=== PATIENT | male | born 1965 | race Caucasian/White ===

== ENCOUNTER 2024-05-18 05:33 | Observation (INO) ==
--- NOTE | 2024-04-15 13:40 | PAT Medication Instructions ---
Medication Instructions Date of Service April 15, 2024 Home Medications Medication Instructions Recorded albuterol sulfate 90 mcg/actuation 2 puff inhalation Q6H PRN 03/22/21 aerosol inhaler shortness of breath or wheezing #8.5 grams cholecalciferol (vitamin D3) 25 50 mcg (2 x 25 mcg (1,000 unit)) 02/15/22 mcg (1,000 unit) capsule PO DAILY #90 caps tamsulosin 0.4 mg capsule (Flomax) 0.4 mg PO QAM #90 caps 11/22/23 omeprazole 40 mg capsule,delayed 40 mg PO DAILY #90 caps 01/29/24 release verapamil 240 mg tablet,extended 360 mg (1.5 x 240 mg) PO DAILY 02/13/24 release #135 tabs celecoxib 100 mg capsule (Celebrex) 100 mg PO BID #60 caps 02/24/24 gabapentin 600 mg tablet 600 mg PO TID #90 tabs 02/27/24 albuterol sulfate 90 mcg/actuation aerosol inhaler 2 puff inhalation Q6H PRN shortness of breath or wheezing cholecalciferol (vitamin D3) 25 mcg (1,000 unit) capsule 50 mcg (2 x 25 mcg (1,000 unit)) PO DAILY tamsulosin 0.4 mg capsule (Flomax) 0.4 mg PO QAM omeprazole 40 mg capsule,delayed release 40 mg PO DAILY verapamil 240 mg tablet,extended release 360 mg (1.5 x 240 mg) PO DAILY celecoxib 100 mg capsule (Celebrex) 100 mg PO BID acetaminophen 650 mg tablet,extended release 1,300 mg PO DAILY gabapentin 600 mg tablet 600 mg PO TID finasteride 5 mg tablet (Proscar) 5 mg PO DAILY sertraline 100 mg tablet (Zoloft) 100 mg PO BID tadalafil 5 mg tablet (Cialis) 5 mg PO DAILY tizanidine 4 mg tablet (Zanaflex) 4 mg PO BID PRN muscle spasticity ASK your surgeon for instructions celecoxib 100 mg capsule (Celebrex) 100 mg PO BID DO NOT take the morning of surgery cholecalciferol (vitamin D3) 25 mcg (1,000 unit) capsule 50 mcg (2 x 25 mcg (1,000 unit)) PO DAILY Take morning of surgery With a small sip of water, OTHERWISE NOTHING TO EAT OR DRINK AFTER MIDNIGHT: albuterol sulfate 90 mcg/actuation aerosol inhaler 2 puff inhalation Q6H PRN shortness of breath or wheezing (use if needed; please bring rescue inhaler with you to hospital day of surgery if possible) tamsulosin 0.4 mg capsule (Flomax) 0.4 mg PO QAM omeprazole 40 mg capsule,delayed release 40 mg PO DAILY verapamil 240 mg tablet,extended release 360 mg (1.5 x 240 mg) PO DAILY acetaminophen 650 mg tablet,extended release 1,300 mg PO DAILY gabapentin 600 mg tablet 600 mg PO TID finasteride 5 mg tablet (Proscar) 5 mg PO DAILY sertraline 100 mg tablet (Zoloft) 100 mg PO BID tadalafil 5 mg tablet (Cialis) 5 mg PO DAILY tizanidine 4 mg tablet (Zanaflex) 4 mg PO BID PRN muscle spasticity (if needed) Take evening before surgery albuterol sulfate 90 mcg/actuation aerosol inhaler 2 puff inhalation Q6H PRN shortness of breath or wheezing (if needed) gabapentin 600 mg tablet 600 mg PO TID sertraline 100 mg tablet (Zoloft) 100 mg PO BID tizanidine 4 mg tablet (Zanaflex) 4 mg PO BID PRN muscle spasticity (if needed) Other Notes If you have any questions please call us at [phone] or [phone] or [phone] or [phone]
--- NOTE | 2024-04-23 09:42 | Anesthesiology Consultation ---
Date of Service April 23, 2024 Assessment & Plan (1) Encounter for pre-operative examination: Chart Review Chart Review: Acceptable Risk for Surgery and Patient seen in Pre Admission Testing Teaching & Discussion Pre-Anesthesia Teaching/Discussion Notes: Instructed NPO after midnight before surgery, except medications with 15 cc of water. Medication instructions provided according to the PAT guidelines. History Surgery Operation Date: 05/18/24 07:30 Proposed Procedures p C3-C4, C4-C5 Artificial Disc Arthroplasty - Dex Dong MD Height/Weight Height: 6 ft 1 in Weight: 89.7 kg Allergies Allergy/AdvReac Type Severity Reaction Status Date / Time iodine Allergy Intermediate Rash Verified 04/15/24 12:46 aspirin AdvReac Severe Bruises/Ble Verified 04/15/24 12:46 eding duloxetine AdvReac Intermediate Tachycardia Verified 04/15/24 12:46 Medications Home Medications Medication Instructions Recorded Confirmed Last Taken albuterol sulfate 90 mcg/actuation 2 puff inhalation Q6H PRN 03/22/21 04/15/24 Unknown aerosol inhaler shortness of breath or wheezing #8.5 grams cholecalciferol (vitamin D3) 25 50 mcg (2 x 25 mcg (1,000 unit)) 02/15/22 04/15/24 02/26/24 07:30 mcg (1,000 unit) capsule PO DAILY #90 caps tamsulosin 0.4 mg capsule (Flomax) 0.4 mg PO QAM #90 caps 11/22/23 04/15/24 02/26/24 07:30 omeprazole 40 mg capsule,delayed 40 mg PO DAILY #90 caps 01/29/24 04/15/24 02/26/24 07:30 release verapamil 240 mg tablet,extended 360 mg (1.5 x 240 mg) PO DAILY 02/13/24 04/15/24 02/26/24 07:30 release #135 tabs celecoxib 100 mg capsule (Celebrex) 100 mg PO BID #60 caps 02/24/24 04/15/24 Unknown acetaminophen 650 mg 1,300 mg PO DAILY 02/27/24 04/15/24 02/26/24 07:30 tablet,extended release gabapentin 600 mg tablet 600 mg PO TID #90 tabs 02/27/24 04/15/24 02/26/24 07:30 finasteride 5 mg tablet (Proscar) 5 mg PO DAILY 04/15/24 04/15/24 Unknown sertraline 100 mg tablet (Zoloft) 100 mg PO BID 04/15/24 04/15/24 Unknown tadalafil 5 mg tablet (Cialis) 5 mg PO DAILY 04/15/24 04/15/24 Unknown tizanidine 4 mg tablet (Zanaflex) 4 mg PO BID PRN muscle spasticity 04/15/24 04/15/24 Unknown Past Medical History Medical History (Updated 04/23/24 @ 09:59 by Krysta Jain PA-C) Anxiety and depression BPH (benign prostatic hyperplasia) Carpal tunnel syndrome Cervical stenosis of spine Degenerative disc disease, lumbar Emphysema lung History of kidney stones Passed on own HTN (hypertension) controlled, stable per pt Hx of aspiration pneumonitis with colonoscopy and endoscopy Migraines PONV (postoperative nausea and vomiting) denies needing scop patch Skin cancer Basal Cell Carcinoma - Side of neck s/p excision Patient denies h/o stroke, seizures, heart attack, heart failure, DM, blood clots/DVTs or blood transfusions. Exercise / Class Metabolic Activity II 4-5 Yardwork/Stairs/Walk up hill (denies chest discomfort or shortness of breath with one flight of stairs) Past Family History Family History Mother COPD (chronic obstructive pulmonary disease) Hypertension Father Myocardial infarction Grandmother (Maternal) Diabetes Heart disease Myocardial infarction Past Surgical History Surgical History H/O arthroscopic knee surgery right H/O shoulder surgery right H/O sinus surgery History of biopsy of bladder 02/27/24 [facility] Hx of arthroscopy of left knee Hx of colonoscopy Hx of esophagogastroduodenoscopy Hx of local excision of skin lesion Basal Cell Carcinoma - Side of neck Hx of tonsillectomy Past Anesthesia History No Family Hx of Anesthesia Complications and Other (aspiration during colonoscopy and endoscopy) History of PONV No Hx of Motion Sickness and History of PONV (denies needing scop patch) Social History Smoking Status: Current every day smoker (-advised) tobacco type: cigarettes Smoking cigarettes per day: 1/2ppd Do You Dip or Chew Tobacco: No Smoking End Date: 1/2 pack Hx Alcohol Use: No Hx Substance Use: No substance use type: marijuana Substance Use Type Other:: medical marijuana-advised Last Used Substance Other:: medical jordyn Review of Systems Patient denies chest pain, shortness of breath, dyspnea on exertion, snoring, witnessed apneas, reflux, fever, chills, cough, wheezing, or palpitations. Physical Exam Vital Signs Vitals BP 151/98 P 65 TEMP 97.9 SP02 98% on RA RESP 18 Physical Patient resting comfortably in chair in no acute distress, alert and oriented, responding appropriately throughout visit Full cervical extension range of motion without pain TMD 3.5 finger breadths Mallampati Score 2 Dentition: intact, denies chipped or loose teeth, caps/crowns, implants or bridg es Lungs: normal respiratory effort. Good air movement, clear throughout to auscultation, no adventitious breath sounds Cardiac: regular rate and rhythm, no murmurs noted Carotid arteries: negative bruit bilat Lab Results Anesthesia Preop Results Results Anesthesia Widget: WBC 6.56 K/ul (4.8-10.8) 04/23/24 Hgb 14.7 g/dl (14.0-18.0) 04/23/24 Hct 41.7 % (42.0-52.0) L 04/23/24 Plt 255 K/uL (130-400) 04/23/24 Na 140 mmol/L (136-145) 04/23/24 K 4.0 mmol/L (3.5-5.1) 04/23/24 Cl 108 mmol/L (98-107) H 04/23/24 CO2 26 mmol/L (21-32) 04/23/24 BUN 16 mg/dl (6-23) 04/23/24 Creat 0.88 mg/dl (0.6-1.4) 04/23/24 Glucose Level 93 mg/dl (70-99(Fasting)) 04/23/24 PT 10.9 Seconds (9.0-12.0) 04/23/24 PTT 29 Seconds (21-31) 04/23/24 INR 1.0 (0.9-1.1) 04/23/24 Blood Type O Negative 04/23/24 Antibody Screen NEGATIVE 04/23/24 Testing Electrocardiogram Date: 04/23/24 NSR, rate 63 bpm Chest X-Ray Date: 02/24/24 No active disease. Stress Test Date: 04/12/23 Normal at MPHR 82% No resting LV wall motion abnormalities or inducible ischemia EF 50-54% No significant valvular disease Other Testing Head CT 02/14/24 No acute intracranial abnormality Chest CT 10/31/23 Ascending aorta mildly dilated to 4 cm Extensive centrilobular emphysema, greatest at the apices Multiple too small to characterize hepatic hypodensities, likely cysts Abdomen pelvis CT 11/06/23 1. Limited exam secondary to contrast within the renal collecting systems, ureters and urinary bladder on the precontrast scan. 2. Suggestion of small bilateral renal calculi. No ureteral calculi, hydronephrosis, or upper urothelial lesion. 3. Prostamegaly with evidence of chronic bladder outlet obstruction. 4. Possible 1.4 cm intraluminal lesion within the left aspect of the urinary bladder which could be correlated with cystoscopy.
[2024-05-18] MEDS: GABAPENTIN 600 MG DOSE PO SCH (05:54)
[2024-05-18] MEDS: LR 15ML/HR IV SCH (05:54)
[2024-05-18] MEDS: LR 60ML/HR IV SCH (05:54)
[2024-05-18] MEDS ORDERED: DEXAMETHASONE SOD INJ 4 MG/ML VIAL ONE (06:49)
[2024-05-18] MEDS ORDERED: fentaNYL citrate PF 100 MCG/2 ML VIAL ONE ×2 (06:49→08:09)
[2024-05-18] MEDS ORDERED: LIDOCAINE 2% 2 ML VIAL/AMP(20MG/ML) INFIL ONE (06:49)
[2024-05-18] MEDS ORDERED: GLYCOPYRROLATE 0.2 MG/ML VIAL ONE (06:49)
[2024-05-18] MEDS ORDERED: ONDANSETRON INJ 2 MG/ML 2 ML VIAL ONE ×2 (06:49→08:08)
[2024-05-18] MEDS ORDERED: PROPOFOL IV EMULSION 10 MG/ML 20 ML VIAL IV ONE (06:49)
[2024-05-18] MEDS ORDERED: ROCURONIUM BROMIDE 10 MG/ML 5 ML VIAL IV ONE (06:49)
[2024-05-18] MEDS ORDERED: MIDAZOLAM HCL 1 MG/ML 2ML VIAL ONE (06:49)
[2024-05-18] MEDS ORDERED: SUGAMMADEX SODIUM 200 MG/2 ML VIAL IV ONE (06:51)
[2024-05-18] MEDS ORDERED: HYDROmorphone INJ 1 MG/ML SYRINGE IV PRN (06:53)
[2024-05-18] MEDS ORDERED: ATROPINE SULFATE 0.1 MG/ML 10ML SYR IV PRN (06:53)
[2024-05-18] MEDS ORDERED: ONDANSETRON INJ 2 MG/ML 2 ML VIAL IV PRN ×2 (06:53→12:11)
[2024-05-18] MEDS ORDERED: ePHEDrine sulfate 50 MG/ML AMP IV PRN (06:53)
--- NOTE | 2024-05-18 07:32 | History & Physical Bridge Note ---
Date of Service May 18, 2024 History & Physical Bridge Note I have examined the patient, reviewed the History & Physical and in the interval since the performance of the History & Physical I have noted the following changes of clinical significance: no changes noted
[2024-05-18] MEDS: ceFAZolin 2000MG 2,000 MG/15 ML SYR IV SCH (08:06)
[2024-05-18] MEDS ORDERED: ePHEDrine sulfate 50 MG/5 ML SYR ONE (08:08)
[2024-05-18] MEDS ORDERED: PHENYLEPHRINE 100MCG/ML 5ML SYR ONE (08:08)
[2024-05-18] MEDS ORDERED: METOCLOPRAMIDE HCL INJ 5 MG/ML 2 ML VIAL ONE (08:08)
[2024-05-18] MEDS: VANCOMYCIN HCL 1000MG/20ML VIAL ONE (11:42)
[2024-05-18] MEDS: FLOSEAL HEMOSTATIC MATRIX 10ML TOP ONE (11:42)
[2024-05-18] MEDS: THROMBIN 5000 UNITS KIT ONE (11:45)
[2024-05-18] MEDS: GELATIN SPONGE 12-7MM ONE (11:45)
--- NOTE | 2024-05-18 11:50 | Post Operative Brief Note ---
PG Immediate Post Op with CF Date of Surgery May 18, 2024 Pre & Post Diagnosis Operation Date: 05/18/24 07:15 Pre-Op Diagnosis: Cervical Stenosis of Spine, Cervical Radiculopathy Post-Op Diagnosis: Cervical Stenosis of Spine, Cervical Radiculopathy I identified the patient and participated in the time-out.: Yes Procedure Operation Date: 05/18/24 07:15 Actual Procedures p C3-C4, C4-C5 Artificial Disc Arthroplasty(Not Applicable) - Dex Dong MD Surgeon Dex Dong MD [employer] Radar Operator none Estimated Blood Loss 5 Findings Consistent with Post-Op Diagnosis Specimens Specimen Description: None per surgeon Drains Grayson Catheter
[2024-05-18] MEDS ORDERED: ONDANSETRON 4 MG OD TAB PO PRN (12:11)
[2024-05-18] MEDS ORDERED: FAMOTIDINE 20 MG TAB PO PRN (12:11)
[2024-05-18] MEDS ORDERED: diphenhydrAMINE Capsule 25 MG CAP PO PRN (12:11)
[2024-05-18] MEDS ORDERED: bisacodyL 10 MG SUPP PR PRN (12:11)
[2024-05-18] MEDS ORDERED: METOCLOPRAMIDE HCL INJ 5 MG/ML 2 ML VIAL IV PRN (12:11)
[2024-05-18] MEDS ORDERED: LORazepam 0.5 MG TAB PO PRN (12:11)
[2024-05-18] MEDS ORDERED: ACETAMINOPHEN 1,000 MG/100 ML VIAL IV PRN (12:11)
[2024-05-18] MEDS ORDERED: ALUMINUM/MAGNESIUM SUSP 30 ML UDC PO PRN (12:11)
[2024-05-18] MEDS ORDERED: RACEPINEPHRINE 2.25% NEBU SOLN 0.5 ML VIAL INH PRN (12:11)
[2024-05-18] MEDS ORDERED: hydrOXYzine HCl 25 MG TAB PO PRN (12:11)
[2024-05-18] MEDS ORDERED: LORazepam 2 MG/1 ML VIAL IV PRN (12:11)
[2024-05-18] MEDS ORDERED: ACETAMINOPHEN 500 MG TAB PO PRN (12:11)
[2024-05-18] MEDS ORDERED: NALOXONE HCL 0.4 MG/1 ML VIAL/CARP IV PRN (12:11)
[2024-05-18] MEDS ORDERED: DO NOT ADMINISTER FLU VACCINE PRN (12:11)
[2024-05-18] MEDS ORDERED: MAGNESIUM HYDROXIDE SUSP 30 ML UDC PO PRN (12:11)
[2024-05-18] MEDS ORDERED: PROMETHAZINE 12.5 MG/50.5 ML BAG IV PRN (12:11)
[2024-05-18] MEDS ORDERED: SOD PHOSPHATE/SOD BIPHOSPHATE ENEMA 132 ML BTL PR PRN (12:11)
[2024-05-18] MEDS ORDERED: dexAMETHasone 8 MG in SYRINGE 0 ML IV PRN (12:11)
[2024-05-18] MEDS ORDERED: DO NOT ADMINISTER PNEUMOCOCCAL VACCINE PRN (12:11)
[2024-05-18] MEDS ORDERED: oxyCODONE/ACETAMINOPHEN 5mg/325mg TAB PO PRN (12:15)
[2024-05-18] MEDS ORDERED: ALBUTEROL HFA 8 GM INHALER INH PRN (12:19)
[2024-05-18] MEDS: fentaNYL citrate PF 100 MCG/2 ML VIAL IV PRN (12:40)
[2024-05-18 13:11] LABS: BUN Creatinine Ratio 16.7 (10-20); Calcium 8.5 mg/dl (8.6-10.3); Creatinine Clr Calc Pharmacy 89.2 ml/min; Potassium 4.4 mmol/L (3.5-5.1)
--- NOTE | 2024-05-18 13:16 | Anesthesiology Progress Note ---
Date of Service May 18, 2024 Anesthesia Post Procedure Vital Signs Vital Signs: Temp Pulse Resp BP Pulse Ox O2 Del Method O2 Flow Rate 05/18/24 13:00 73 19 120/81 93 Oxymask 6 05/18/24 12:50 71 16 128/75 92 Oxymask 6 05/18/24 12:40 74 23 131/90 94 Oxymask 6 05/18/24 12:30 85 13 107/69 94 Oxymask 6 05/18/24 12:20 70 19 116/87 92 Oxymask 6 05/18/24 12:10 68 21 126/77 93 Oxymask 6 05/18/24 12:02 36.1 C L 69 18 123/71 94 Oxymask 6 05/18/24 06:01 36.5 C 79 18 121/83 96 Room Air Pain Intensity Neck: Pain Intensity: 8 Transfer of Care Handoff Completed per policy Notes Mental Status: alert / awake / arousable Patient Amnestic to Procedure: Yes Nausea / Vomiting: adequately controlled Pain: adequately controlled Airway Patency, RR, SpO2: stable & adequate BP & HR: stable & adequate Hydration State: stable & adequate Anesthetic Complications: no major complications apparent and Pt Satisfied with anesthetic care Notes: moves all ext, good finance controller strength R=L, mod pain now much better with Rx, good f or d/c
[2024-05-18] MEDS: HYDROmorphone INJ 0.5 MG/0.5 ML SYR IV PRN ×2 (14:07→14:10)
--- NOTE | 2024-05-18 14:32 | Hospitalist Consultation ---
Date of Consultation May 18, 2024 Assessment & Plan (1) Cervical stenosis of spine: s/p cervical disc arthroplasty 05/18/24 - on gabapentin, Celebrex, and tizanidine at home - no anemia pre-operatively - renal function stable - currently on 3L O2 via nasal canula - wean as tolerated - pain regimen per ortho team - continue gabapentin, prn Tylenol, prn Dilaudid, prn Percocet - hold tizanidine and Celebrex - 2 bags of ancef post operatively sceduled - 1 bag of dexamethasone prn ordered if stridor present - continue post-op bowel Regimen with scheduled miralax and senokot - PT/OT to evaluate - AM CBC and BMP (2) BPH (benign prostatic hyperplasia): Follow with urology, recent biopsy showed benign tissue - montano catheter removed 1145 post-operatively - continue finasteride, tamsulosin, and tadalafil - monitor for post-op urine retention - straight cath as needed (3) Hypertension: stable - continue verapamil (4) GERD (gastroesophageal reflux disease): - continue home PPI - Pepcid prn (5) Tobacco abuse: smokes half a pack per day for the past 30 years - no need for nicotine patch at this time, can add if needed Plan Chronic stable diagnoses: COPD - continue albuterol prn Depression - continue sertraline Vit D deficiency- continue Vit D supplement VTE ppx: SCDs Diet: regular Dispo: Med Surg, primary care via orthopedics team Supervising Physician Co-Signing Physician Notes I personally saw and examined the patient. I independently reviewed the labs, EKG, imaging, problem list, medication list, past medical history and family history. I verified all monroe points and agree with Katy Bangura PA-C with the following exceptions and/or additions: 58 year old male POD#0 C3-C4, C4-C5 Artificial Disc Arthroplasty. No current concerns or questions from the patient. Doing well post operatively. O/E HS RRR, no murmurs, Chest CTAB, Abdo SNT A/P VTE/Pain/Bowel management per primary ortho spine team No change to chronic medications as above History of Present Illness Reason for Consultation: medical management Requesting Physician: Dex Dong MD Attending Physician: Dex Dong MD History of Present Illness Patient is a 58-year-old male with a past medical history of cervical stenosis, BPH, hypertension, GERD, depression, COPD, and vitamin D deficiency. He was seen at bedside with his present. He was sleeping postoperatively and after receiving IV pain medication. His stated that he is doing well postoperatively other than pain, denies postoperative nausea and vomiting. He does use tobaccohalf a pack per day for the past 30 years. Denies past medical history of diabetes, cancer, previous VTE. He does not use oxygen at baseline. Allergies Allergy/AdvReac Type Severity Reaction Status Date / Time iodine Allergy Intermediate Rash Verified 05/18/24 05:59 aspirin AdvReac Severe Bruises/Ble Verified 05/18/24 05:59 eding duloxetine AdvReac Intermediate Tachycardia Verified 05/18/24 05:59 Home Medications Medication Instructions Recorded Confirmed Type albuterol sulfate 90 mcg/actuation 2 puff inhalation Q6H PRN 03/22/21 05/18/24 Rx aerosol inhaler shortness of breath or wheezing #8.5 grams cholecalciferol (vitamin D3) 25 50 mcg (2 x 25 mcg (1,000 unit)) 02/15/22 05/18/24 Rx mcg (1,000 unit) capsule PO DAILY #90 caps tamsulosin 0.4 mg capsule (Flomax) 0.4 mg PO QAM #90 caps 11/22/23 05/18/24 Rx omeprazole 40 mg capsule,delayed 40 mg PO DAILY #90 caps 01/29/24 05/18/24 Rx release verapamil 240 mg tablet,extended 360 mg (1.5 x 240 mg) PO DAILY 02/13/24 05/18/24 Rx release #135 tabs celecoxib 100 mg capsule (Celebrex) 100 mg PO BID #60 caps 02/24/24 05/18/24 Rx acetaminophen 650 mg 1,300 mg PO DAILY 02/27/24 05/18/24 History tablet,extended release gabapentin 600 mg tablet 600 mg PO TID #90 tabs 02/27/24 05/18/24 Rx finasteride 5 mg tablet (Proscar) 5 mg PO DAILY 04/15/24 05/18/24 History sertraline 100 mg tablet (Zoloft) 100 mg PO BID 04/15/24 05/18/24 History tadalafil 5 mg tablet (Cialis) 5 mg PO DAILY 04/15/24 05/18/24 History tizanidine 4 mg tablet (Zanaflex) 4 mg PO BID PRN muscle spasticity 04/15/24 05/18/24 History oxycodone-acetaminophen 5 mg-325 1 tab PO TID #20 tabs 05/19/24 Rx mg tablet Patient History Medical History Hx of aspiration pneumonitis with colonoscopy and endoscopy PONV (postoperative nausea and vomiting) denies needing scop patch History of kidney stones Passed on own Migraines Emphysema lung Anxiety and depression Carpal tunnel syndrome BPH (benign prostatic hyperplasia) Degenerative disc disease, lumbar Cervical stenosis of spine HTN (hypertension) controlled, stable per pt Skin cancer Basal Cell Carcinoma - Side of neck s/p excision Surgical History Hx of arthroscopy of left knee Hx of esophagogastroduodenoscopy Hx of colonoscopy Hx of local excision of skin lesion Basal Cell Carcinoma - Side of neck History of biopsy of bladder 02/27/24 [facility] H/O sinus surgery H/O shoulder surgery right Hx of tonsillectomy H/O arthroscopic knee surgery right Family History Mother COPD (chronic obstructive pulmonary disease) Hypertension Father Myocardial infarction Grandmother (Maternal) Diabetes Heart disease Myocardial infarction Social History Smoking Status: Current every day smoker (-advised) Tobacco Type: Cigarettes Cigarettes Per Day: 1/2ppd; Smoking End Date: 1/2 pack; Second Hand Exposure: No; Do You Dip or Chew Tobacco: No; Tobacco Cessation Education Requested by Patient: No Hx Alcohol Use: No Hx Substance Use: No Preferred Language: Czech Communication Ability: Effective Mast Maker Required: No Beliefs That Will Affect Care: None marital status: Current Living Situation: Spouse current occupational status: unemployed How many Children do You have: 1 Other Information That Helps Us Care for You: No Feels Safe at Home: Yes Safety Concerns: Feels Safe At This Time Do you think of yourself as: straight/heterosexual Gender Identity: Male Assistive Devices: None Review of Systems Review of Systems: see HPI Physical Exam Physical Exam: The patient is sleeping, lethargic, well developed and well nourished, normocephalic and atraumatic, in no acute distress. Non-toxic appearing. HEENT- mucous membranes moist. Heart-normal S1 and S2. No murmurs, rubs or gallops. Lungs-clear bilaterally, no respiratory distress, no accessory muscle use. 3L O2 via nasal canula. Abdomen-normal bowel sounds and soft. No ascites noted. Non-tender. Extremities- no clubbing, cyanosis, or edema. Results & Data Results & Data Vital Signs (Past 12 Hours) Vital Signs Temp Pulse Pulse Resp BP Pulse Ox O2 Del Method 05/18/24 14:23 36.6 C 86 84 18 112/68 98 Nasal Cannula 05/18/24 14:12 74 16 95 Nasal Cannula 05/18/24 13:59 Nasal Cannula 05/18/24 13:30 71 10 L 127/83 93 Nasal Cannula 05/18/24 13:20 72 18 123/84 92 Nasal Cannula 05/18/24 13:10 72 16 124/83 92 Nasal Cannula 05/18/24 13:00 73 19 120/81 93 Oxymask 05/18/24 12:50 71 16 128/75 92 Oxymask 05/18/24 12:40 74 23 131/90 94 Oxymask 05/18/24 12:30 85 13 107/69 94 Oxymask 05/18/24 12:20 70 19 116/87 92 Oxymask 05/18/24 12:10 68 21 126/77 93 Oxymask 05/18/24 12:02 36.1 C L 69 18 123/71 94 Oxymask 05/18/24 06:01 36.5 C 79 18 121/83 96 Room Air O2 Flow Rate 05/18/24 14:23 3 05/18/24 14:12 3 05/18/24 13:59 3 05/18/24 13:30 3 05/18/24 13:20 3 05/18/24 13:10 3 05/18/24 13:00 6 05/18/24 12:50 6 05/18/24 12:40 6 05/18/24 12:30 6 05/18/24 12:20 6 05/18/24 12:10 6 05/18/24 12:02 6 05/18/24 06:01 PG Care Time/CCT Total # of Minutes Spent Total Time Spent with Patient: Total time spent is greater than 50% in coordination of care (as documented) at patient's floor/unit and/or counseling patient: Coding Level of Care Code 50964 IN/OBS CONSULT LVL 3,45M Diagnoses Cervical stenosis of spine M48.02 BPH (benign prostatic hyperplasia) N40.0 Hypertension I10 GERD (gastroesophageal reflux disease) K21.9 Tobacco abuse Z72.0
[2024-05-18] MEDS: GABAPENTIN 600 MG TAB PO SCH (14:45)
[2024-05-18] MEDS ORDERED: ceFAZolin 1000MG 1,000 MG/7.5 ML SYR IV SCH (18:15)
[2024-05-18] MEDS: ceFAZolin 1000MG 1,000 MG/7.5 ML SYR IV SCH (18:20)
[2024-05-18] MEDS: DOCUSATE SODIUM/SENNA 50/8.6MG TAB PO SCH (20:09)
[2024-05-18] MEDS: SERTRALINE HCL 100 MG TABLET PO SCH (20:09)
[2024-05-19] MEDS: LACTATED RINGER'S 500 ML IV ONE (01:42)
[2024-05-19 03:08] LABS: Hematocrit (blood only) 41.2 % (42.0-52.0); Hemoglobin 14.2 g/dl (14.0-18.0); Mean Corpuscular Hemoglobin 32.1 pg (25.0-34.0); Mean Corpuscular Hgb Conc 34.5 g/dL (32.0-36.0); Platelet Count 296 K/uL (130-400); RDW Coefficient of Variation 11.9 % (11.5-14.5); RDW Standard Deviation 40.7 fL (36.4-46.3); Red Blood Count 4.43 M/uL (4.70-6.10); White Blood Count 19.06 K/ul (4.8-10.8)
[2024-05-19 03:10] LABS: BUN Creatinine Ratio 24.5 (10-20); Calcium 8.7 mg/dl (8.6-10.3); Creatinine Clr Calc Pharmacy 92.9 ml/min; Potassium 3.6 mmol/L (3.5-5.1)
[2024-05-19] MEDS: oxyCODONE/ACETAMINOPHEN 5mg/325mg TAB PO PRN (05:00)
[2024-05-19] MEDS: POLYETHYLENE (MIRALAX) 17 GM PACK PO SCH (05:59)
[2024-05-19 06:10] LABS: Basophils # (auto) 0.02 K/uL (0.00-0.20); Basophils % (auto) 0.1 %; Eosinophils # (auto) 0.02 K/uL (0.00-0.50); Eosinophils % (auto) 0.1 %; Hematocrit (blood only) 38.3 % (42.0-52.0); Hemoglobin 13.2 g/dl (14.0-18.0); Immature Granulocytes % (auto) 0.5 %; Lymphocytes # (auto) 1.74 K/uL (1.20-3.40); Lymphocytes % (auto) 9.1 %; Mean Corpuscular Hemoglobin 31.8 pg (25.0-34.0); Mean Corpuscular Hgb Conc 34.5 g/dL (32.0-36.0); Mean Corpuscular Volume 92.3 fL (80.0-100.0); Mean Platelet Volume 10.1 fL (9.4-12.4); Monocytes # (auto) 1.27 K/uL (0.11-0.59); Monocytes % (auto) 6.6 %; Neutrophils # (auto) 16.02 K/uL (1.40-6.50); Neutrophils % (auto) 83.6 %; Platelet Count 270 K/uL (130-400); RDW Standard Deviation 40.9 fL (36.4-46.3); Red Blood Count 4.15 M/uL (4.70-6.10); White Blood Count 19.17 K/ul (4.8-10.8)
[2024-05-19 06:24] LABS: Calcium 8.4 mg/dl (8.6-10.3); Creatinine Clr Calc Pharmacy 104.6 ml/min; Potassium 3.9 mmol/L (3.5-5.1)
--- NOTE | 2024-05-19 07:46 | Discharge Summary ---
Date of Service May 19, 2024 Admission HPI (Per Admitting) Cervical stenosis Principal Diagnosis Same as "Discharge Diagnosis" noted below under Discharge Instructions. Discharge Data Consultations 05/18/24 12:15 Consult Hospitalist Routine Procedures Performed Operation Date: 05/18/24 07:15 Actual Procedures p C3-C4, C4-C5 Artificial Disc Arthroplasty(Not Applicable) - Dex Dong MD Ordered Studies 05/18/24 [place] cervical 2-3V Routine Hospital Course (1) Neck pain on right side: (2) Cervical stenosis of spine: PG Care Time/CCT Total # of Minutes Spent Total Time Spent with Patient: Total time spent is greater than 50% in coordination of care (as documented) at patient's floor/unit and/or counseling patient: Discharge Plan Discharge Items Patient Disposition: Home - Self-Care Reason For Visit: Cervical Stenosis of Spine, Cervical Radiculopathy Discharge Diagnosis: Same Condition on Discharge: Good Activity: As commented below Lifting: No more than 10 pounds Bathing: May shower/bathe in 3 days Exercise/Sports: Wait until after follow-up appointment Driving/Machine Use: Resume 3 days after discharge Weightbearing: Full weightbearing Non-emergency contact: Surgeon Call non-emergency contact if: your pain is worsening Follow-up/Referrals: Madelin Connors DO [Primary Care Provider] - Diet: Regular Addtl Attending Provider Instructions: RX to be sent through ambulatory chart. Pending Studies at Discharge: No Stand-Alone Forms: [facility] [employer], Smoking Cessation Medications and DC Order Prescriptions: Continued cholecalciferol (vitamin D3) 25 mcg (1,000 unit) capsule 50 mcg PO DAILY Qty: 90 1RF tamsulosin [Flomax] 0.4 mg capsule 0.4 mg PO QAM Qty: 90 3RF omeprazole 40 mg capsule,delayed release(DR/EC) 40 mg PO DAILY Qty: 90 2RF gabapentin 600 mg tablet 600 mg PO TID Qty: 90 2RF oxycodone-acetaminophen 5-325 mg tablet 1 tab PO TID Qty: 20 0RF albuterol sulfate 90 mcg/actuation HFA aerosol inhaler 2 puff inhalation Q6H PRN (Reason: shortness of breath or wheezing) Qty: 8.5 2RF verapamil 240 mg tablet extended release 360 mg PO DAILY Qty: 135 3RF celecoxib [Celebrex] 100 mg capsule 100 mg PO BID Qty: 60 2RF Patient Comments: has not started yet acetaminophen 650 mg Tablet Extended Release 1,300 mg PO DAILY tizanidine [Zanaflex] 4 mg tablet 4 mg PO BID PRN (Reason: muscle spasticity) Patient Comments: Pt unsure if takes this sertraline [Zoloft] 100 mg tablet 100 mg PO BID finasteride [Proscar] 5 mg tablet 5 mg PO DAILY tadalafil [Cialis] 5 mg tablet 5 mg PO DAILY Discharge Orders: Discharge Order (Routine); Ordered 05/19/24 Ordered By: Dex Dong Admission Data Admit Date/Time: 05/18/24 12:15 Attending Provider: Dex Dong Admit Provider: Dex Dong Primary Care Provider: Madelin Connors Other Providers: Irena Baires Other Interventions: Discharge Summary Assessment (RN) Last Done: 05/19/24 10:57
[2024-05-19] MEDS: FINASTERIDE 5 MG TAB PO SCH (08:55)
[2024-05-19] MEDS: PANTOprazole 40 MG TAB PO SCH (08:55)
[2024-05-19] MEDS: CHOLECALCIFEROL 25 MCG (1000 UNITS) TAB PO SCH (08:55)
[2024-05-19] MEDS: VERAPAMIL HCL 180 MG TABCR PO SCH (09:39)
[2024-05-19] MEDS: TAMSULOSIN HCL 0.4 MG CAP PO SCH (09:39)
[2024-05-19 11:13] VITALS: BP 159/100; PULSE 78; TEMP 98.1
[2024-05-19 11:15] VITALS: RESP 17
[2024-05-19 11:55] VITALS: O2SAT 95
--- NOTE | 2024-05-20 16:27 | Operative Report ---
PG Post Operative Report Pre & Post Diagnosis Operation Date: 05/18/24 07:15 Pre-Op Diagnosis: Cervical Stenosis of Spine, Cervical Radiculopathy Post-Op Diagnosis: Cervical Stenosis of Spine, Cervical Radiculopathy I identified the patient and participated in the time-out.: Yes Procedure Operation Date: 05/18/24 07:15 Actual Procedures p C3-C4, C4-C5 Artificial Disc Arthroplasty(Not Applicable) - Dex Dong MD Surgeon Dex Dogn MD Delivery Supervisor none Estimated Blood Loss 5 Findings Consistent with Post-Op Diagnosis Specimens none Description of Procedure 1. C3-4 anterior decompression and artificial disc replacement. Mobi-C 17 x 17 x 5 mm. (25848) 2. C4-5 anterior decompression and artificial disc replacement. Mobi-C 17 x 17 x 5 mm. ([id number]) Patient was taken operating room and after adequate anesthesia was carefully positioned supine on the OSI flattop table. After a preprepped, the patient was carefully positioned on the table for the anterior approach to the C3-4 and C4-5 levels, fluoroscopy was brought in I marked for the approximate location of the incision. Prep and drape was completed, I began with a left-sided approach transverse incision and from here I advanced down in standard fashion to the medial border of the sternocleidomastoid and to the anterior aspect of the cervical spine. Once confirmed, I then mobilized the soft tissues away from the anterior aspect of the disc spaces at C3-4 and C4-5, I then used fluoroscopy to place the distractor pins at C3 and C4. Retractors were then set, I then moved ahead with incising the anterior annulus and then from there mobilizing the degenerative disc at this level. Care was taken to carefully elevate this and once elevated to the proper level, continued with the thorough discectomy and removal of cartilage from the endplates. Bur was then used to remove the overhanging spondylosis across the interspace posteriorly followed by evelyn iverson curettes and Kerrison punches to complete the decompression at the interspace across out to the uncinates on both sides. With this now completed I then went through trials selecting the size artificial disc replacement and this was inserted under fluoroscopic control with excellent placement. With this level completed, the distractor pin was removed to C3 advanced up to the C5 level, combination of Floseal and bone wax was applied to the insertion point. The C5 distractor pin was placed under fluoroscopic control, and then the retractors were reset. Anterior annulotomy was performed, I then in a similar fashion remove the disc material and elevated the disc space to its proper height. The decompression was performed across the interspace to the dura and completed out to the uncinates on both sides. Once completed, I then selected trials once again and selected the same size artificial disc replacement which was then inserted under fluoroscopic control. Final images were obtained revealing excellent placement of the devices, the distractor pins were removed and Floseal and bone wax was applied. Final inspection revealed no issues, I then placed antibiotic powder and then closed the operative site with 3-0 Vicryl sutures followed by benzoin and Steri-Strips. Patient tolerated procedure well was taken recovery room satisfactory condition. I attest to the content of the Intraoperative Record and any orders documented therein. Any exceptions are noted below. I attest to the content of the Intraoperative Record and any orders documented therein. Any exceptions are noted below.
--- NOTE | 2024-05-21 07:01 | Fluoroscopy Report ---
FL cervical 2-3V CLINICAL HISTORY: C3-C4, C4-C5 ARTIFICIAL DISC ARTHROPLASTY COMPARISON STUDY: MRI 05/04/2024 FLUOROSCOPY TIME: 120 seconds FLUOROSCOPY IMAGES: 12 EXPOSURE DOSE: 20.34 mGy FINDINGS: Endotracheal tube noted. Discectomy at 2 levels labeled the C3-C4 and C4-C5 levels. Alignme nt appears anatomic. No unexpected opaque foreign bodies. Images were submitted following completion of the surgery. IMPRESSION: Fluoroscopic assistance as above. ACT 112: Negative or not required by law. Electronically signed by: Maurice Metz M.D. 05/21/2024 6:59 AM
== END 2024-05-19 13:33 | disposition home or self-care (01) ==
LOC: 3E 05:33 → ASU 05:33